=== PATIENT | female | born 1935 | race Caucasian/White ===

== ENCOUNTER 2018-02-21 10:22 | Outpatient (CLI) | payer MEDICARE ==
--- NOTE | 2018-02-21 15:53 | PET ---
PET WITH CT SKULL TO MID THIGH: 02/21/18 CLINICAL HISTORY: Tonsil cancer. No prior imaging comparison available. RADIOPHARMACEUTICAL: 10.8 millicuries of Fluorine 18 FDG IV. FINDINGS: There is an abnormal hypermetabolic activity of the left neck within the left level IIA zone with SUV of approximately 6.3. No additional hypermetabolic adenopathy of the head and neck region is seen. N o pathologic, hypermetabolic activity of Waldeyer's ring is evident. PET CT imaging of the chest, abdomen and pelvis does not reveal hypermetabolic mass or adenopathy. There is diffuse atherosclerotic vascular disease. Areas of intimally displaced calcification of the aorta likely related to chronic areas of aortic dissection, incompletely evaluated on the basis of th is exam. There is a contracted gallbladder with punctate calcification. This may be further assessed with followup gallbladder ultrasound as clinically necessary. 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 There is moderate retained fecal material of the colon. IMPRESSION: Evidence of left neck metastatic adenopathy. Telephone call of findings placed to patient's physician, Trell Crow, at time of interpretation. POS: [facility]
== END 2018-02-21 10:23 | disposition home or self-care (01) ==
LOC: PET 10:22
PROVIDERS: ATTEND Radiology Radiation Oncology
DX: C09.9 Malignant neoplasm of tonsil, unspecified (principal); R59.0 Localized enlarged lymph nodes
CPT/HCPCS: 78815; A9552

== ENCOUNTER 2018-08-22 09:20 | Outpatient (CLI) | payer MEDICARE ==
--- NOTE | 2018-08-22 12:05 | PET ---
EXAM: PET/CT HISTORY: History of squamous cell of the left tonsil TECHNIQUE: PET scanning with CT attenuation correction was performed from the vertex of the skull to the proxima l thighs following the intravenous administration of 11.2 millicuries [id number]. COMPARISON: PET/CT dated February 21, 2018 FINDINGS: Biodistribution:The biodistribution for the exam appears acceptable. Head and neck: There is appropriate background activity within the brain. The hypermetabolic left lev el IIA lymph node is no longer identified. There is increased hypermetabolic activity involving the left aspect of the soft tissue of the palate, left palatine tonsillar region, left oropharynx and lef t base the tongue with a peak SUV activity of 3.1 and a mean activity of 3.03. Some mild hypermetabolic activity was seen within the palatine tonsillar region bilaterally on the prior examin ation with a peak activity of 3.27. Thorax: No hypermetabolic pulmonary lesion, pleural effusion or lymphadenopathy is present. Abdomen and pelvis: There is expected background activity within the GI and systems. No hypermetab olic mass, lymphadenopathy or ascites is present. There is been interval placement of a percutaneous gastrostomy tube. There is stable cholelithiasis. There is stable cyst within the left kidney. There are scattered moderate calcification involving the abdominal pelvic vasculature. Osseous structures and skin: No hypermetabolic skin or osseous lesion is identified. There is some mi ld activity seen within the skeletal musculature of the right hip and shoulder regions likely related to muscular activity. IMPRESSION: 1. Resolution of the previously seen hypermetabolic left level IIA lymph node. 2. Slight increase hypermetabolic activity along the left aspect of the soft tissues of the palate, l eft palatine tonsillar region, left oropharynx and left base of tongue. This may be related to therapy. Clinical and PET CT follow-up is recommended.
== END 2018-08-22 09:21 | disposition home or self-care (01) ==
LOC: PET 09:20
PROVIDERS: ATTEND Radiology Radiation Oncology
DX: C09.9 Malignant neoplasm of tonsil, unspecified (principal)
CPT/HCPCS: 78815; A9552